=== PATIENT | female | born 1955 | race Caucasian/White ===

== ENCOUNTER 2023-06-10 08:10 | Emergency (ER) | payer MEDICARE ==
[2023-06-10 08:18] VITALS: RESP 18; TEMP 98
[2023-06-10] MEDS ORDERED: KETOROLAC 15 MG/ML 1 ML VIAL IVP STA (08:18)
--- NOTE | 2023-06-10 09:05 | XR ---
EXAMINATION TYPE: XR knee complete 3 views LT DATE OF EXAM: 06/10/2023 COMPARISON: None HISTORY: 68-year-old female with knee pain from fall. Previous surgery September 2022. FINDINGS: Partially visualized antegrade intramedullary nail fixation. There are 3 proximal interlocking screw is noted. There is a large joint effusion distending the patellar pouch with mass effect onto the ove rlying quadriceps tendon. Suspect a subtle nondisplaced fracture of the lateral tibial plateau, possi ace extending to the medial margin of the intercondylar eminence. Suspect old healed fracture deformi ty at the neck of the fibula. IMPRESSION: 1. Previous antegrade intramedullary nail fixation of the visualized proximal femur. 3 proximal inter locking screws are noted. Old healed fracture deformity of the fibular neck. 2. Subtle underlying nondisplaced fracture of the lateral tibial plateau. Suspect that the fracture e xtends to the medial margin of the intercondylar eminence. 3. Very large joint effusion distending the suprapatellar pouch.
[2023-06-10] MEDS ORDERED: HYDROmorphone 0.5 MG/0.5 ML SYRINGE IM STA ×2 (09:09→10:53)
--- NOTE | 2023-06-10 09:09 | ED ---
General Adult HPI - General Chief complaint: Extremity Injury, Lower Stated complaint: Left Knee Injury, Fall Time Seen by Provider: 06/10/23 08:15 Source: patient, RN notes reviewed, old records reviewed Mode of arrival: EMS Limitations: no limitations - History of Present Illness Initial comments: This is a 68-year-old female presents emergency Department complaining of a left knee pain. Patient states she fell last evening and injured knee patient states she fell softly to the ground when she hurt her knee and did not hit her head or neck and has no other complaints. Patient states the knee is swollen and it's difficult to walk on. Patient denies any ankle pain or foot pain patient denies any hip pain. - Related Data Home Medications Medication Instructions Recorded Confirmed Chlorthalidone [Hygroton] 25 mg PO DAILY 05/27/23 06/10/23 Losartan Potassium 100 mg PO DAILY 05/27/23 06/10/23 Multivitamins, Thera [Multivitamin 1 tab PO DAILY 05/27/23 06/10/23 (formulary)] PARoxetine HCL [Paxil] 10 mg PO DAILY 05/27/23 06/10/23 Previous Rx's Medication Instructions Recorded Ketorolac [Toradol] 10 mg PO Q6HR #15 tab 06/10/23 Allergies Allergy/AdvReac Type Severity Reaction Status Date / Time No Known Allergies Allergy Verified 06/10/23 08:18 Review of Systems ROS Statement: Those systems with pertinent positive or pertinent negative responses have been documented in the HPI. ROS Other: All systems not noted in ROS Statement are negative. Past Medical History Past Medical History: Hypertension Additional Past Medical History / Comment(s): Rectal CA History of Any Multi-Drug Resistant Organisms: None Reported Past Surgical History: Orthopedic Surgery Past Psychological History: No Psychological Hx Reported Smoking Status: Current every day smoker Past Alcohol Use History: Daily Past Drug Use History: None Reported General Exam - General Exam Comments Initial Comments: GENERAL Patient is well-developed and well-nourished. Patient is in mild distress. EYES Patient's pupils are equal and round. Extraocular motion is intact SKIN Unremarkable NEURO The patient is alert and oriented 3 PYSCH Patient has normal interpersonal interactions. MUSCULOSKELETAL Patient's knee has an effusion is tender to palpate unable to test ligament laxity secondary to pain Limitations: no limitations Course Vital Signs 06/10/23 08:15 Temperature 98 F Pulse Rate 90 Respiratory 18 Rate Blood Pressure 162/100 O2 Sat by Pulse 100 Oximetry Medical Decision Making - Medical Decision Making Was pt. sent in by a medical professional or institution (, EMILIANO, [employer], urgent care, hospital, or [facility]...) When possible be specific @ -No Did you speak to anyone other than the patient for history (EMS, parent, family, police, friend...)? What history was obtained from this source @ -No Did you review nursing and triage notes (agree or disagree)? Why? @ -I reviewed and agree with nursing and triage notes Were old charts reviewed (outside hosp., previous admission, EMS record, old EKG, old radiological studies, urgent care reports/EKG's, [facility] records)? Report findings @ -No old charts were reviewed Differential Diagnosis (chest pain, altered mental status, abdominal pain women, abdominal pain men, vaginal bleeding, weakness, fever, dyspnea, syncope, headache, dizziness, GI bleed, back pain, seizure, CVA, palpatations, mental health, musculoskeletal)? @ -Differential Musculoskeletal Muscular strain, contusion, ligament sprain, fracture, arthritis, septic arthritis, bursitis, cellulitis, muscle spasm, nerve compression, DVT, arterial occlusion, herpes zoster, electrolyte abnormality, tumor.... This is not meant to be in all inclusive list EKG interpreted by me (3pts min.). @ -As above X-rays interpreted by me (1pt min.). @ -X-ray of the left knee shows a tibial plateau fracture with a very large joint effusion CT interpreted by me (1pt min.). @ -None done U/S interpreted by me (1pt. min.). @ -None done What testing was considered but not performed or refused? (CT, X-rays, U/S, labs)? Why? @ -None What meds were considered but not given or refused? Why? @ -None Did you discuss the management of the patient with other professionals (professionals i.e. EMILIANO Mays, [employer], lab, RT, psych nurse, drug abuse social worker, stemhole borer and topper, teacher, youth probation officer, porter sample case)? Give summary @ -I spoke with Dr. Fernandes's physician assistant track coach and the informants that this is something that the patient could follow-up as an outpatient and there is no need for emergent surgery so patient will be put in a knee immobilizer and follow-up Was smoking cessation discussed for >3mins.? @ -No Was critical care preformed (if so, how long)? @ -No Were there social determinants of health that impacted care today? How? (Homelessness, low income, unemployed, alcoholism, drug addiction, transportation, low edu. Level, literacy, decrease access to med. care, alf, rehab)? @ -No Was there de-escalation of care discussed even if they declined (Discuss DNR or withdrawal of care, Hospice)? DNR status @ -No What co-morbidities impacted this encounter? (DM, HTN, Smoking, COPD, CAD, Cancer, CVA, ARF, Chemo, Hep., AIDS, mental health diagnosis, sleep apnea, morbid obesity)? @ -None Was patient admitted / discharged? Hospital course, mention meds given and route, prescriptions, significant lab abnormalities, going to OR and other pertinent info. @ -Received Toradol and Dilaudid in the emergency department for pain that was helpful. I put a knee immobilizer on the patient and the patient states she [place] 2 walkers [place] and wanted her house. Patient will follow-up with her orthopedic surgeon Undiagnosed new problem with uncertain prognosis? @ -No Drug Therapy requiring intensive monitoring for toxicity (Heparin, Nitro, Insulin, Cardizem)? @ -No Were any procedures done? @ -No Diagnosis/symptom? @ -Tibial plateau fracture Acute, or Chronic, or Acute on Chronic? @ -Acute Uncomplicated (without systemic symptoms) or Complicated (systemic symptoms)? @ -Complicated Side effects of treatment? @ -No Exacerbation, Progression, or Severe Exacerbation? @ -No Poses a threat to life or bodily function? How? (Chest pain, [place], [place], pneumonia, PE, COPD, DKA, ARF, appy, cholecystitis, CVA, Diverticulitis, Homicidal, Suicidal, threat to staff... and all critical care pts) @ -No Disposition Clinical Impression: Tibial plateau fracture Disposition: HOME SELF-CARE Instructions (If sedation given, give patient instructions): Leg Fracture (ED) Prescriptions: Ketorolac [Toradol] 10 mg PO Q6HR #15 tab Is patient prescribed a controlled substance at d/c from ED?: No Referrals: None,Stated [Primary Care Provider] - 1-2 days Time of Disposition: 10:21
[2023-06-10] MEDS ORDERED: HYDROmorphone 0.5 MG/0.5 ML SYRINGE IVP STA (09:14)
[2023-06-10] MEDS ORDERED: ACET/COD 300 MG/30 MG STARTER PACK 6 TAB BTL PO STA ×2 (10:22→10:23)
[2023-06-10 11:43] VITALS: BP 154/89; PULSE 88
== END 2023-06-10 11:43 | disposition home or self-care (01) ==
LOC: EC 08:10
DX: S82.145A Nondisplaced bicondylar fracture of left tibia, initial encounter for closed fracture (principal); I10 Essential (primary) hypertension; F17.200 Nicotine dependence, unspecified, uncomplicated; Z79.899 Other long term (current) drug therapy; W19.XXXA Unspecified fall, initial encounter
CPT/HCPCS: 73562; 99284; 96374; 96375; 96372; L1830; J1885; J1170

== ENCOUNTER → 2024-06-01 | Outpatient (CLI) | payer MEDICARE ==
[2024-06-01 15:49] LABS: African American GFR (CKD) 88 (>60 ml/min/1.73 sqM); Blood Urea Nitrogen 27 mg/dL (7-17); Non-African American GFR(CKD) 76 (>60 ml/min/1.73 sqM)
--- NOTE | 2024-06-05 10:46 | CT ---
EXAMINATION TYPE: CT Chest Abd Pelvis w con CT DLP: mGycm, Automated exposure control for dose reduction was used. DATE OF EXAM: 06/01/2024 5:01 PM COMPARISON: None. CLINICAL INDICATION:Female, 69 years old with history of C20 RECTAL CANCER; [facility], Technique: CT Chest Abd Pelvis w con; Multiple axial images were obtained. Two-dimensional coronal an d sagittal reconstructions were obtained. Contrast used: mL of , Oral contrast used: Findings: CHEST: LUNGS/ PLEURA: The lung parenchyma appears unremarkable. No metastatic disease identified. AIRWAY: Patent and unremarkable. HEART: Size within normal limits. MEDIASTINUM: No gross evidence of adenopathy. VASCULATURE: No aortic aneurysm. MUSCULOSKELETAL: No acute osseous abnormalities. SOFT TISSUES/LYMPH NODES: Unremarkable. LOWER NECK: No significant findings. ABDOMEN: ABDOMEN LIVER: Unremarkable. No metastatic disease identified. GALLBLADDER AND BILE DUCTS: Unremarkable. PANCREAS: Unremarkable. SPLEEN: Unremarkable. ADRENAL GLANDS: Unremarkable. KIDNEYS AND URETERS: No evidence of hydronephrosis or renal calculus. The ureters are unremarkable. PELVIS BLADDER: Unremarkable REPRODUCTIVE: A metastatic lesion pelvis may involve the uterus, cervix and/or vaginal cuff. ABDOMEN & PELVIS STOMACH AND BOWEL: Left lower quadrant colostomy site is identified. No evidence of bowel obstruction . PERITONEUM: No evidence of pneumoperitoneum or free fluid. VASCULATURE: No evidence of aortic aneurysm. MUSCULOSKELETAL: A 7 cm soft tissue mass invades both the sacrum and the iliac bone near the sacroili ac joint or, in other words, involving the sacroiliac joint. This is seen on series 3, image 99 uteru s, cervix and vaginal cuff with a also be involved with the tumor. LYMPH NODES: No gross evidence for lymphadenopathy. SOFT TISSUE/ABDOMINAL WALL: Unremarkable IMPRESSION: A 7 cm soft tissue mass in the left pelvic floor invades both the left sacrum and the left iliac bone near the sacroiliac joint or, in other words, involving the left sacroiliac joint. This is seen on s eries 3, image 99 . The tumor also appears to invade the uterus, cervix and vaginal cuff with a also be involved with the tumor. Unremarkable left lower quadrant colostomy site. Follow up recommendations for incidental pulmonary nodules are per [employer] or [employer].
== END | disposition home or self-care (01) ==
LOC: RADCTMAIN 14:23
PROVIDERS: ATTEND Internal Medicine Hematology & Oncology
DX: C20 Malignant neoplasm of rectum (principal); R19.09 Other intra-abdominal and pelvic swelling, mass and lump; Z93.3 Colostomy status; Z85.048 Personal history of other malignant neoplasm of rectum, rectosigmoid junction, and anus
CPT/HCPCS: 82565; 84520; 71260; 74177; 36415; Q9967

== ENCOUNTER → 2024-06-04 | Outpatient (CLI) | payer MEDICARE ==
--- NOTE | 2024-06-04 18:58 | MR ---
EXAMINATION TYPE: MR pelvis wo/w con DATE OF EXAM: 06/04/2024 2:54 PM CLINICAL INDICATION:Female, 69 years old with history of C20 MALIGNANT NEOPLASM OF RECTUM; [facility], Recta l cancer 2017, Pelvic mass, low back pain, Abnormal MRI lumbar spine done at COMPARISON: Lumbar spine 05/24/2024 TECHNIQUE: Triplane multisequence imaging was performed of the pelvis. IV Contrast: 5 cc Gadavist FINDINGS: Reproductive: Vagina: Unremarkable. Uterus: The uterus is anteverted in position. Uterus measures 6.0 x 2.2 by 3.8 cm. The endometrium an d junctional zone are within normal limits multiple low signal fibroids are seen within the uterus... Ovaries: Follicular changes are noted to the ovaries. Bladder: Nondistended. Bowel: Postsurgical changes about left lower quadrant ostomy. Peritoneum: No free fluid identified. No lymphadenopathy identified. Lymph nodes: No evidence of adenopathy. Vasculature: Unremarkable. Musculoskeletal: Soft tissue mass near the attachment of the piriform muscle in the sacrum and with e xtension into the left sacrum measuring at least 3.7 x 4.2 x 3.9 cm. There is postcontrast enhancemen t within this lesion. The uterus is immediately adjacent to this series 1001 image 17. The rectum is not definitively visualized may be surgically absent given left lower quadrant ostomy. Abdominal wall/soft tissues: Unremarkable. IMPRESSION: In the location of the piriform muscle attachment to the sacrum is a soft tissue mass with enhancemen t. Given history of rectal cancer this is suspicious for recurrent rectal cancer. No lymphadenopathy definitively visualized.
== END | disposition home or self-care (01) ==
LOC: RADMRIMAIN 13:51
PROVIDERS: ATTEND Internal Medicine Hematology & Oncology
DX: C20 Malignant neoplasm of rectum (principal); R93.0 Abnormal findings on diagnostic imaging of skull and head, not elsewhere classified; Z85.048 Personal history of other malignant neoplasm of rectum, rectosigmoid junction, and anus
CPT/HCPCS: 72197; A9585

== ENCOUNTER 2024-06-08 12:22 | Day surgery (SDC) | payer MEDICARE ==
[2024-06-08 13:04] LABS: Mean Platelet Volume 7.1; Platelet Count 240 k/uL (150-450)
[2024-06-08] MEDS: ALPRAZolam 0.25 MG TAB PO PRN (13:11)
[2024-06-08 13:13] LABS: Prothrombin Time 11.1 sec (10.0-12.5)
[2024-06-08 13:21] VITALS: RESP 16; TEMP 97.7
[2024-06-08] MEDS: HYDROmorphone 0.5 MG/0.5 ML SYRINGE IVP PRN (13:36)
--- NOTE | 2024-06-08 14:25 | CT ---
EXAMINATION TYPE: CT biopsy abdomen percutaneous DATE OF EXAM: 06/08/2024 1:59 PM CLINICAL INDICATION:Female, 69 years old with history of C20 MALIGNANT NEOPLASM OF RECTUM; Biopsy- Ma lignant neoplasm of rectum COMPARISON: 06/05/2024 CT DLP: 594 mGycm, Automated exposure control for dose reduction was used. Contrast used: mL of , none Oral contrast used: none ATTENDING: Dr. Khris Escobar TECHNIQUE: CT guided percutaneous biopsy of using coaxial method. One or more CT dose reduction strategies were utilized during this examination. Total CT dose 594 mGycm. FINDINGS: The procedure was explained to the patient including risks of bleeding, bruising, infection, damage t o nearby organs and need for additional therapy including potential surgery. All questions were answ ered and consent was obtained. The previous studies were reviewed. The patient was placed on the CT couch in the position The over lying skin was marked and prepped using sterile method. Timeout was taken per protocol. Following adm inistration of local anesthesia a 17 gauge coaxial needle was introduced on the left sacral mass. Th e coaxial needle tip was directed into the mass with CT guidance. Multiple 18 gauge coaxial biopsies were then obtained. Following the procedure the needle was removed and sterile dressing was appli ed to the percutaneous site. Post biopsy imaging demonstrated no evidence of hemorrhage. Patient was taken for postprocedure observation in stable condition. IMPRESSIONS: Status post percutaneous sacral mass biopsy as described above. Pathology results pending.
[2024-06-08 14:39] VITALS: BP 151/85; PULSE 79
== END 2024-06-08 14:39 | disposition home or self-care (01) ==
LOC: RADPROMAIN 12:22
PROVIDERS: ATTEND Internal Medicine Hematology & Oncology
DX: C20 Malignant neoplasm of rectum
CPT/HCPCS: 85049; 85610; 49180; 77012; J1170; 88305; 88341; 88342

== ENCOUNTER → 2024-09-06 | Outpatient (CLI) | payer MEDICARE ==
--- NOTE | 2024-09-06 16:57 | PE ---
EXAMINATION TYPE: PET CT fusion skull to thigh DATE OF EXAM: 09/06/2024 CLINICAL INDICATION:Female, 69 years old with history of C20 RECTAL CANCER; TECHNIQUE: Following the intravenous administration of 11.18 mCi of F-18 FDG, whole body images are performed from the skull base to the midthigh. Images are reviewed on the computer in the coronal, axial, and sagittal planes. Reconstructed rotating images are created on independent workstation and reviewed on the computer. A non-contrast CT is performed in conjunction with the PET scan. Glucose level 90 mg/dL CT DLP: 155.32 mGycm, Automated exposure control for dose reduction was used. COMPARISON: CT 06/01/2024, PET/CT None, MRI: 06/04/2024 FINDINGS: Mediastinal SUV mean is 2.9. Hepatic parenchyma SUV mean is 3.0. SKULL BASE AND NECK: No suspicious radiotracer activity. CHEST, MEDIASTINUM, AND HILAR REGION: No suspicious radiotracer activity. ABDOMEN AND PELVIS/ MUSCULOSKELETAL STRUCTURES: There is redemonstration of abnormal destructive soft tissue mass measuring grossly 7.2 x 4.1 cm which invades the left hemisacrum and extends towards mid line. There is abutment of the posterior aspect of the uterus with loss of fat plane. The mass demons trates some internal calcifications. There is focal FDG activity centrally within the mass with a max imum SUV of 16.7. FDG activity above comes close to the posterior aspect of the uterus. Difficult to tell if there is invasion with lack of intravenous contrast and loss of fat plane. Additionally there is some adjacent uptake within the midline aspect of the sacrum just superiorly with a maximum SUV o f 14.3. Mild radiotracer uptake at the left eighth through 11th rib costochondral junctions with a max SUV of . Sequential appearance without CT evidence abnormality. Favored to represent inflammation. Healing anterior right second rib fracture with callus formation and mild radiotracer uptake of 4.2 m aximum SUV. Postfixation changes of the proximal right femur with intramedullary rahul and screw. There is some mil d radiotracer activity along the lateral aspect likely related to inflammation. Demonstrates a maximu m SUV is 6.5. OTHER CT: Left carotid bulb calcification. Mild to moderate atherosclerotic calcification of the aort a and its branches. Remote ununited fracture of the anterior right coracoid process and mid right cla vicle. Additional healed right lower anterior rib fractures. Postfixation changes of the proximal rig ht femur with intramedullary rahul and screw. There is some mild radiotracer activity along the lateral aspect likely related to inflammation. Bowel anastomosis identified within the anterior upper pelvis . No focal wall thickening in this region. Left lower quadrant end colostomy identified. Small calcif ied anterior uterine fibroid. IMPRESSION: 1. FDG avid destructive sacral mass most consistent with malignancy. Correlate with biopsy finding. No other definitive evidence for FDG avid metastasis. This mass abuts the posterior aspect of the micky sary. No definitive evidence of FDG activity within the expected uterine border however evaluation is limited due to lack of intravenous contrast and loss of fat plane. Cannot exclude invasion into the u terus. 2. Additional regions of mild FDG images uptake favored to represent inflammation as described above . [facility], , 09/06/2024 4:54 PM
== END | disposition home or self-care (01) ==
LOC: RADPETMAIN 11:10
PROVIDERS: ATTEND Internal Medicine Hematology & Oncology
CPT/HCPCS: 78815

== ENCOUNTER 2024-09-14 09:51 | Day surgery (SDC) | payer MEDICARE ==
[2024-09-12 09:33] VITALS: BMI 17.0
[~2024-09-14 09:51] MED LIST: HYDROmorphone 0.5 MG/0.5 ML SYRINGE IVP PRN; MIDAZOLAM 2 MG/2 ML VIAL IV PRN; Pre Op ABX Message 1 EACH MISC MISCELLANE ONE
[2024-09-14] MEDS: IV FLUID CONTINUATION 1,000 ML IV ONE (10:22)
[2024-09-14 10:44] VITALS: TEMP 97.7
[2024-09-14] MEDS: LACTATED RINGERS 1,000 ML IV SCH (10:45)
[2024-09-14] MEDS: ONDANSETRON 4 MG/2 ML VIAL IVP ONE (10:47)
[2024-09-14] MEDS: DEXAMETHASONE SOD PHOSPHATE 4 MG/ML 1 ML VIAL IV ONE (10:48)
[2024-09-14] MEDS: HEPARIN SODIUM,PORCINE 5,000 UNIT/ML 1 ML VIAL SQ STA (10:58)
[2024-09-14] MEDS ORDERED: fentaNYL (PF) 50 MCG/ML 2 ML AMP ONE (11:10)
[2024-09-14] MEDS ORDERED: PROPOFOL 10 MG/ML 20 ML VIAL IV ONE (11:10)
[2024-09-14] MEDS ORDERED: MIDAZOLAM 2 MG/2 ML VIAL ONE (11:10)
[2024-09-14] MEDS: LIDOCAINE 1% INJ 10MG/ML (20 ML MDV) SQ ONE ×2 (11:35→11:52)
--- NOTE | 2024-09-14 12:33 | FL ---
Intraoperative/procedural fluoroscopic services were provided for Port-A-Cath placement. Distal tip a ppears to be within the superior cavoatrial junction. Total fluoroscopy time is 82.0 minutes with a t otal of 4 submitted images to PACS. Total DAP 0.02023 mGym2. Please see the operative note for furth er details. [facility], , 09/14/2024 12:31 PM
[2024-09-14 12:59] VITALS: RESP 14
--- NOTE | 2024-09-14 13:00 | P.OP ---
Date of Procedure: 09/14/24 Preoperative Diagnosis: Metastatic cancer Procedure(s) Performed: Metastatic cancer Anesthesia: JERRELLA Surgeon: Colton Espinosa Estimated Blood Loss (ml): 8 IV fluids (ml): 500 Pathology: none sent Condition: stable Disposition: PACU Indications for Procedure: Chemotherapy Operative Findings: No significant findings Description of Procedure: She was brought to the operating suite where she was cleaned and draped in sterile fashion. A timeout was performed and everyone agreed with information sided. Once the patient was anesthetized local anesthetic was used to numb the incision site. An introducer needle was used to cannulate the subclavian vein underneath the left clavicle dark nonpulsatile blood was observed and a guidewire was then placed through the introducer needle. A C-arm was used to confirm placement into the SVC. No ectopy was observed. Next a #15 blade a lateral cautery was used to dissect down to the prepectoral fascia to make the pocket for the Mediport. A tunneling device was then used to go underneath the pocket for the catheter. An introducer dilator sheath combo was used to cannulate the subclavian vein over the guidewire the guidewire and sheath was removed and this was done under fluoroscopy the catheter was then guided over this sheath into the SVC under fluoroscopy the sheath was then broken and the catheter was put in place the catheter was then cut and the Mediport was placed on the catheter. This was secured with the locking device and one Ethibond suture. The skin was closed using 4-0 Vicryl suture in an interrupted fashion. Patient tolerated procedure well and was then transported to PACU in stable condition for a chest x-ray will be performed
[2024-09-14 13:16] VITALS: BP 172/92; PULSE 83
--- NOTE | 2024-09-14 13:19 | XR ---
EXAMINATION TYPE: XR chest 1V DATE OF EXAM: 09/14/2024 1:10 PM COMPARISON: Fluoroscopic images 09/14/2024, PET/CT 1031.4 TECHNIQUE: XR chest 1V Frontal view of the chest. CLINICAL INDICATION:Female, 69 years old with history of MEDIPORT PLACEMENT; FINDINGS: Lungs/Pleura: There is no evidence of pleural effusion, focal consolidation, or pneumothorax. Pulmonary vascularity: Unremarkable. Heart/mediastinum: Cardiomediastinal silhouette is unremarkable. Musculoskeletal: No acute osseous pathology. Remote healed ununited fracture deformity of the right c lavicle. Lines/Tubes: Interval placement of left chest wall subclavian approach Mediport with distal tip of catheter termin ating at the low SVC. IMPRESSION: Interval placement of left chest wall Mediport with distal tip of catheter terminating at the low SVC . No pneumothorax. [facility], , 09/14/2024 1:17 PM
== END 2024-09-14 13:47 | disposition home or self-care (01) ==
LOC: OR 09:51
PROVIDERS: ATTEND Surgery
DX: C20 Malignant neoplasm of rectum (principal); F17.210 Nicotine dependence, cigarettes, uncomplicated; F10.90 Alcohol use, unspecified, uncomplicated
CPT/HCPCS: 77001; 71045; 36561; C1788; J2250; J1644; J1100; J2405; J2003; J3010; J2704

== ENCOUNTER 2024-09-17 08:15 | Emergency (ER) | payer MEDICARE ==
--- NOTE | 2024-09-17 08:38 | ED ---
Recheck HPI - General Chief Complaint: Recheck/Abnormal Lab/Rx Stated Complaint: leg pain Time Seen by Provider: 09/17/24 08:30 Source: patient, EMS, RN notes reviewed Mode of arrival: EMS Limitations: no limitations - History of Present Illness Initial Comments: This is a 69-year-old female with current rectal cancer presenting to the emergency department via EMS for chief complaint of intractable pain. Patient states that pain is most severe located over her hip on the left and radiating down her leg. Patient had recent port placement and is scheduled to follow-up with Dr. Winn to discuss chemotherapy options. Patient had radiation therapy completed earlier in the summer. She has been taking gabapentin, fentanyl, [place] at home with minimal relief. - Related Data Home Medications Medication Instructions Recorded Confirmed Losartan Potassium 100 mg PO QAM 05/27/23 09/14/24 Multivitamins, Thera [Multivitamin 1 tab PO DAILY 05/27/23 09/14/24 (formulary)] PARoxetine HCL [Paxil] 10 mg PO QAM 05/27/23 09/14/24 amLODIPine 10 mg PO QAM 09/12/24 09/14/24 Allergies Allergy/AdvReac Type Severity Reaction Status Date / Time No Known Allergies Allergy Verified 09/17/24 08:21 Review of Systems ROS Statement: Those systems with pertinent positive or pertinent negative responses have been documented in the HPI. ROS Other: All systems not noted in ROS Statement are negative. 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 Hx rectal cancer with ostomy bag. History of Any Multi-Drug Resistant Organisms: None Reported Past Surgical History: Appendectomy, Bowel Resection, Orthopedic Surgery Additional Past Surgical History / Comment(s): Right femur surgery, left tibia surgery, left ankle surgery. Past Anesthesia/Blood Transfusion Reactions: No Reported Reaction Additional Past Anesthesia/Blood Transfusion Reaction / Comment(s): Adopted - no family hx known. Past Psychological History: No Psychological Hx Reported Smoking Status: Current every day smoker Past Alcohol Use History: Occasional Past Drug Use History: None Reported - Past Family History Mother History Unknown: Yes Additional Family Medical History / Comment(s): Patient adopted, family hx unknown. General Exam Limitations: no limitations Course Vital Signs 11/09/3009/17/24 09/17/24 08:18 09:08 09:24 Temperature 98.3 F 98.2 F Pulse Rate 114 H 96 86 Respiratory 20 18 18 Rate Blood Pressure 171/80 142/78 O2 Sat by Pulse 114 H 99 Oximetry Medical Decision Making - Medical Decision Making Was pt. sent in by a medical professional or institution (EMILIANO Mays, REGIONAL ACCOUNT MANAGER, urgent care, hospital, or detention...) When possible be specific @ -No Did you speak to anyone other than the patient for history (EMS, parent, family, police, friend...)? What history was obtained from this source @ -No Did you review nursing and triage notes (agree or disagree)? Why? @ -I reviewed and agree with nursing and triage notes Were old charts reviewed (outside hosp., previous admission, EMS record, old EKG, old radiological studies, urgent care reports/EKG's, detention records)? Report findings @ -No old charts were reviewed Differential Diagnosis (chest pain, altered mental status, abdominal pain women, abdominal pain men, vaginal bleeding, weakness, fever, dyspnea, syncope, headache, dizziness, GI bleed, back pain, seizure, CVA, palpatations, mental health, musculoskeletal)? @ -Differential Weakness: Hypoglycemia, shock, sepsis, hyponatremia, anemia, infection, SC, ETOH, adverse medicine reaction, overdose, stroke, this is not meant to be an all-inclusive list. EKG interpreted by me (3pts min.). @ -None X-rays interpreted by me (1pt min.). @ -None done CT interpreted by me (1pt min.). @ -None done U/S interpreted by me (1pt. min.). @ -None done What testing was considered but not performed or refused? (CT, X-rays, U/S, lab s)? Why? @ -None What meds were considered but not given or refused? Why? @ -None Did you discuss the management of the patient with other professionals (professionals i.e. EMILIANO Mays, REGIONAL ACCOUNT MANAGER, lab, RT, psych nurse, child protective services social worker, civil lawyer, teacher, commercial escrow officer, registered nurse hh case manager)? Give summary @ -No Was smoking cessation discussed for >3mins.? @ -No Was critical care preformed (if so, how long)? @ -No Were there social determinants of health that impacted care today? How? (Homelessness, low income, unemployed, alcoholism, drug addiction, transportation, low edu. Level, literacy, decrease access to med. care, custodial, rehab)? @ -No Was there de-escalation of care discussed even if they declined (Discuss DNR or withdrawal of care, Hospice)? DNR status @ -No What co-morbidities impacted this encounter? (DM, HTN, Smoking, COPD, CAD, Cancer, CVA, ARF, Chemo, Hep., AIDS, mental health diagnosis, sleep apnea, morbid obesity)? @ -cancer Was patient admitted / discharged? Hospital course, mention meds given and route, prescriptions, significant lab abnormalities, going to OR and other pertinent info. @ -Discharge. 69-year-old female with tractable pain. On my evaluation patient she is laying on her side complaining of pain to the hip. There is no overlying erythema or discoloration to the skin. The patient is red with dose of Dilaudid. Laboratory studies were ordered. Nursing staff informed me that the patient had a change to her oncology appointment that was moved to earlier and patient is requesting discharge prior to laboratory studies. states that her pain had markeldy improvd afer medication administration. Patient's labs remarkable for mild leukocytosis with a white count of 11.3, neutrophils of 10.0, mildly hypokalemic with a potassium of 3.2 and hypomagnesemic with a m agnesium of 1.4. Due to patient leaving before laboratory studies were finished repletion of electrolytes was not completed. Discussed with Dr. Akbar Undiagnosed new problem with uncertain prognosis? @ -No Drug Therapy requiring intensive monitoring for toxicity (Heparin, Nitro, Insuli n, Cardizem)? @ -No Were any procedures done? @ -No Diagnosis/symptom? @ -Intractable pain Acute, or Chronic, or Acute on Chronic? @ -Acute Uncomplicated (without systemic symptoms) or Complicated (systemic symptoms)? @ -Uncomplicated Side effects of treatment? @ -No Exacerbation, Progression, or Severe Exacerbation? @ -No Poses a threat to life or bodily function? How? (Chest pain, USA, SC, pneumonia, PE, COPD, DKA, ARF, appy, cholecystitis, CVA, Diverticulitis, Homicidal, Suicidal, threat to staff... and all critical care pts) @ -No - Lab Data Result diagrams: 09/17/24 08:47 09/17/24 08:47 Lab Results 09/17/24 09/17/24 Range/Units 08:47 08:47 WBC 11.3 H (3.8-10.6) k/uL RBC 3.87 (3.80-5.40) m/uL Hgb 12.7 (11.4-16.0) gm/dL Hct 38.2 (34.0-46.0) % MCV 98.7 (80.0-100.0) fL MCH 32.8 (25.0-35.0) pg MCHC 33.2 (31.0-37.0) g/dL RDW 13.5 (11.5-15.5) % Plt Count 159 (150-450) k/uL MPV 7.5 Neutrophils % 89 % Lymphocytes % 5 % Monocytes % 5 % Eosinophils % 1 % Basophils % 0 % Neutrophils # 10.0 H (1.3-7.7) k/uL Lymphocytes # 0.5 L (1.0-4.8) k/uL Monocytes # 0.6 (0-1.0) k/uL Eosinophils # 0.1 (0-0.7) k/uL Basophils # 0.0 (0-0.2) k/uL Sodium 133 L (137-145) mmol/L Potassium 3.2 L (3.5-5.1) mmol/L Chloride 97 L (98-107) mmol/L Carbon Dioxide 30 (22-30) mmol/L Anion Gap 6 mmol/L BUN 11 (7-17) mg/dL Creatinine 0.63 (0.52-1.04) mg/dL Est GFR (CKD-EPI)AfAm >90 (>60 ml/min/1.73 sqM) Est GFR (CKD-EPI)NonAf >90 (>60 ml/min/1.73 sqM) Glucose 113 H (74-99) mg/dL Calcium 8.9 (8.4-10.2) mg/dL Magnesium 1.4 L (1.6-2.3) mg/dL Total Bilirubin 1.1 (0.2-1.3) mg/dL AST 22 (14-36) U/L ALT 12 (4-34) U/L Alkaline Phosphatase 66 (38-126) U/L Total Protein 6.6 (6.3-8.2) g/dL Albumin 4.1 (3.5-5.0) g/dL Disposition Clinical Impression: Pain Disposition: HOME SELF-CARE Condition: Good Instructions (If sedation given, give patient instructions): Chronic Back Pain (DC) Additional Instructions: Please return to the Emergency Department if symptoms worsen or any other concerns. Is patient prescribed a controlled substance at d/c from ED?: No Referrals: Jackson Jara MD [Primary Care Provider] - 1-2 days Time of Disposition: 09:20
[2024-09-17] MEDS: HYDROmorphone 1 MG/ML 1 ML SYRINGE IVP STA (08:50)
[2024-09-17 09:09] VITALS: BP 142/78; RESP 18
[2024-09-17 09:21] LABS: ALT 12 U/L (4-34); AST 22 U/L (14-36); African American GFR (CKD) >90 (>60 ml/min/1.73 sqM); Albumin 4.1 g/dL (3.5-5.0); Alkaline Phosphatase 66 U/L (38-126); Anion Gap 6 mmol/L; Blood Urea Nitrogen 11 mg/dL (7-17); Calcium 8.9 mg/dL (8.4-10.2); Carbon Dioxide 30 mmol/L (22-30); Chloride 97 mmol/L (98-107); Glucose 113 mg/dL (74-99); Magnesium 1.4 mg/dL (1.6-2.3); Non-African American GFR(CKD) >90 (>60 ml/min/1.73 sqM); Potassium 3.2 mmol/L (3.5-5.1); Sodium 133 mmol/L (137-145); Total Bilirubin 1.1 mg/dL (0.2-1.3); Total Protein 6.6 g/dL (6.3-8.2)
[2024-09-17 09:26] VITALS: PULSE 86; TEMP 98.2
[2024-09-17 09:38] LABS: Basophils % (A) 0 %; Eosinophils # (A) 0.1 k/uL (0-0.7); Eosinophils % (A) 1 %; HCT 38.2 % (34.0-46.0); HGB 12.7 gm/dL (11.4-16.0); Lymphocytes # (A) 0.5 k/uL (1.0-4.8); Lymphocytes % (A) 5 %; MCH 32.8 pg (25.0-35.0); MCHC 33.2 g/dL (31.0-37.0); MCV 98.7 fL (80.0-100.0); Mean Platelet Volume 7.5; Monocytes # (A) 0.6 k/uL (0-1.0); Monocytes % (A) 5 %; Neutrophils % (A) 89 %; Platelet Count 159 k/uL (150-450); RBC 3.87 m/uL (3.80-5.40); RDW 13.5 % (11.5-15.5); WBC 11.3 k/uL (3.8-10.6)
== END 2024-09-17 09:06 | disposition home or self-care (01) ==
LOC: EC 08:15
DX: M25.552 Pain in left hip (principal); C20 Malignant neoplasm of rectum; F17.200 Nicotine dependence, unspecified, uncomplicated
CPT/HCPCS: 36415; 80053; 83735; 85025; 99284; 96374; J1171

== ENCOUNTER 2025-06-07 03:30 | Emergency (ER) | payer MEDICARE ==
[2025-06-07] MEDS: HYDROmorphone 1 MG/ML 1 ML SYRINGE IVP STA ×2 (04:00→06:19)
--- NOTE | 2025-06-07 05:27 | ED ---
General Adult HPI - General Chief complaint: Neck Pain/Injury Stated complaint: Back pain Time Seen by Provider: 06/07/25 03:34 Source: patient, EMS, RN notes reviewed, old records reviewed Mode of arrival: EMS Limitations: no limitations - History of Present Illness Initial comments: 70-year-old female presenting with neck pain and headache. Patient symptoms have been present for approximately 1 week. She was seen at urgent care and started on steroids with mild improvement. Patient does have a history of chronic pain and has been taking oral morphine at home. She has a history of metastatic cancer and is currently on chemotherapy. Patient denies chest pain. Denies fever. Denies injury. - Related Data Home Medications Medication Instructions Recorded Confirmed Losartan Potassium 100 mg PO QAM 05/27/23 09/14/24 Multivitamins, Thera [Multivitamin 1 tab PO DAILY 05/27/23 09/14/24 (formulary)] PARoxetine HCL [Paxil] 10 mg PO QAM 05/27/23 09/14/24 amLODIPine 10 mg PO QAM 09/12/24 09/14/24 Previous Rx's Medication Instructions Recorded Cyclobenzaprine [Flexeril] 5 mg PO TID PRN #12 tablet 06/07/25 Allergies Allergy/AdvReac Type Severity Reaction Status Date / Time No Known Allergies Allergy Verified 06/07/25 03:34 Review of Systems ROS Statement: Those systems with pertinent positive or pertinent negative responses have been documented in the HPI. ROS Other: All systems not noted in ROS Statement are negative. Past Medical History Past Medical History: Cancer, Hypertension, Osteoarthritis (OA) Additional Past Medical History / Comment(s): Current tailbone cancer, had radiation. Hx rectal cancer with ostomy bag. History of Any Multi-Drug Resistant Organisms: None Reported Past Surgical History: Appendectomy, Bowel Resection, Orthopedic Surgery Additional Past Surgical History / Comment(s): Right femur surgery, left tibia surgery, left ankle surgery. Past Anesthesia/Blood Transfusion Reactions: No Reported Reaction Additional Past Anesthesia/Blood Transfusion Reaction / Comment(s): Adopted - no family hx known. Smoking Status: Current every day smoker Past Alcohol Use History: Occasional Past Drug Use History: None Reported - Past Family History Mother History Unknown: Yes Additional Family Medical History / Comment(s): Patient adopted, family hx unknown. General Exam Limitations: no limitations General appearance: alert, in no apparent distress Head exam: Present: atraumatic, normocephalic Eye exam: Present: normal appearance, PERRL ENT exam: Present: normal exam Neck exam: Present: tenderness. Absent: full ROM Respiratory exam: Present: normal lung sounds bilaterally. Absent: respiratory distress, wheezes Cardiovascular Exam: Present: regular rate, normal rhythm GI/Abdominal exam: Present: soft. Absent: distended, tenderness Extremities exam: Present: normal inspection, normal capillary refill Neurological exam: Present: alert, oriented X3, CN II-XII intact. Absent: motor sensory deficit Psychiatric exam: Present: normal affect, normal mood Course Vital Signs 06/07/25 06/07/25 03:34 06:07 Temperature 99.0 F 99.4 F Pulse Rate 72 85 Respiratory 18 18 Rate Blood Pressure 177/79 151/72 O2 Sat by Pulse 100 98 Oximetry Medical Decision Making - Medical Decision Making Was pt. sent in by a medical professional or institution (, PA, AIR SEALING TECHNICIAN, urgent care, hospital, or senior care...) When possible be specific @ -No Did you speak to anyone other than the patient for history (EMS, parent, family, police, friend...)? What history was obtained from this source @ -No Did you review nursing and triage notes (agree or disagree)? Why? @ -I reviewed and agree with nursing and triage notes Were old charts reviewed (outside hosp., previous admission, EMS record, old EKG, old radiological studies, urgent care reports/EKG's, senior care records)? Report findings @ -No old charts were reviewed Differential Headache: Migraine, tension, cluster, carbon monoxide, central venous thrombosis, pension karma temporal arteritis, acute closure glaucoma, intercranial hemorrhage, mastoiditis, sinusitis, head injury, this is not meant to be an all-inclusive list. Differential Musculoskeletal Muscular strain, contusion, ligament sprain, fracture, arthritis, septic arthritis, bursitis, cellulitis, muscle spasm, nerve compression, DVT, arterial occlusion, herpes zoster, electrolyte abnormality, tumor.... This is not meant to be in all inclusive list EKG interpreted by me (3pts min.). @ -As above X-rays interpreted by me (1pt min.). @ -None done CT interpreted by me (1pt min.). @ -CT of the brain is negative for intracranial hemorrhage, shows area of encephalomalacia without acute findings. CT cervical spine is negative for fracture or subluxation no acute findings.] U/S interpreted by me (1pt. min.). @ -None done What testing was considered but not performed or refused? (CT, X-rays, U/S, labs)? Why? @ -None What meds were considered but not given or refused? Why? @ -None Did you discuss the management of the patient with other professionals (professionals i.e. , PA, AIR SEALING TECHNICIAN, lab, RT, psych nurse, manager social, construction plant operator, teacher, chief administrative officer, case monitor)? Give summary @ -No Was smoking cessation discussed for >3mins.? @ -No Was critical care preformed (if so, how long)? @ -No Were there social determinants of health that impacted care today? How? (Homelessness, low income, unemployed, alcoholism, drug addiction, transportation, low edu. Level, literacy, decrease access to med. care, half-way, rehab)? @ -No Was there de-escalation of care discussed even if they declined (Discuss DNR or withdrawal of care, Hospice)? DNR status @ -No What co-morbidities impacted this encounter? (DM, HTN, Smoking, COPD, CAD, Cancer, CVA, ARF, Chemo, Hep., AIDS, mental health diagnosis, sleep apnea, morbid obesity)? @ -Metastatic cancer Was patient admitted / discharged? Hospital course, mention meds given and route, prescriptions, significant lab abnormalities, going to OR and other pertinent info. @70-year-old female with neck pain. Patient has pain with movement. No focal numbness or tingling. No fevers. I did perform CT of the brain and cervical spine given her history of metastatic cancer. This was unremarkable. Patient given pain medication in emergency department with improvement in symptoms. Stable for discharge with continued opiate pain medications at home. Undiagnosed new problem with uncertain prognosis? @ -No Drug Therapy requiring intensive monitoring for toxicity (Heparin, Nitro, Insulin, Cardizem)? @ -No Were any procedures done? @ -No Diagnosis/symptom? @ -[Neck pain Acute, or Chronic, or Acute on Chronic? @ -Acute Uncomplicated (without systemic symptoms) or Complicated (systemic symptoms)? @ -[default Side effects of treatment? @ -No Exacerbation, Progression, or Severe Exacerbation? @ -No Poses a threat to life or bodily function? How? (Chest pain, [place], [place], pneumonia, PE, COPD, DKA, ARF, appy, cholecystitis, CVA, Diverticulitis, Homicidal, Suicidal, threat to staff... and all critical care pts) @ -No Disposition Clinical Impression: Acute torticollis Disposition: HOME SELF-CARE Condition: Fair Instructions (If sedation given, give patient instructions): Cervical Strain (ED) Prescriptions: Cyclobenzaprine [Flexeril] 5 mg PO TID PRN #12 tablet PRN Reason: Muscle Spasm Is patient prescribed a controlled substance at d/c from ED?: No Referrals: Jackson Jara MD [Primary Care Provider] - 1-2 days Time of Disposition: 06:33
--- NOTE | 2025-06-07 06:30 | CT ---
EXAM: CT Head Without Intravenous Contrast CLINICAL HISTORY: ITS.REASON CT Reason: Headache, neck pain TECHNIQUE: Axial computed tomography images of the head/brain without intravenous contrast. CTDI is 45.2 mGy and DLP is 1007 mGy-cm. This CT exam was performed using one or more of the following dose reduction techniques: automated exposure control, adjustment of the mA and/or kV according to patient size, and/or use of iterative reconstruction technique. COMPARISON: No relevant prior studies available. FINDINGS: Brain: Remote injury of the left frontal lobe with encephalomalacia and gliosis.. No hemorrhage. Mild nonspecific white matter changes. No edema. Ventricles: Unremarkable. No ventriculomegaly. Bones/joints: Unremarkable. No acute fracture. Soft tissues: Unremarkable. Sinuses: Unremarkable as visualized. No acute sinusitis. Mastoid air cells: Unremarkable as visualized. No mastoid effusion. IMPRESSION: No evidence of acute intracranial pathology. EXAM: CT Cervical Spine Without Intravenous Contrast CLINICAL HISTORY: ITS.REASON CT Reason: Headache, neck pain TECHNIQUE: Axial computed tomography images of the cervical spine without intravenous contrast. CTDI is 7.6 mGy and DLP is 224.9 mGy-cm. This CT exam was performed using one or more of the following dose reduction techniques: automated exposure control, adjustment of the mA and/or kV according to patient size, and/or use of iterative reconstruction technique. COMPARISON: No relevant prior studies available. FINDINGS: Remote right clavicular fracture deformity. Vertebrae: Unremarkable. No acute fracture. Discs/spinal canal/neural foramina: No acute findings. No spinal canal stenosis. Soft tissues: Unremarkable. IMPRESSION: No evidence of acute cervical spine pathology.
[2025-06-07 06:58] VITALS: BP 144/82; PULSE 82; RESP 17; TEMP 99.3
== END 2025-06-07 06:58 | disposition home or self-care (01) ==
LOC: EC 03:30
DX: M43.6 Torticollis (principal); F17.200 Nicotine dependence, unspecified, uncomplicated; Z85.9 Personal history of malignant neoplasm, unspecified
CPT/HCPCS: 72125; 70450; 99284; 96374; 96376; J1171